=== PATIENT | female | born 1990 | race Caucasian/White ===

== ENCOUNTER 2016-11-20 16:31 | Emergency (ER) | payer OTHER ==
[~2016-11-20] VITALS: Ht 162.6 cm; Wt 63.9 kg
[~2016-11-20 16:31] MED LIST: ABILIFY2 MG; ABILIFY5 MG PO; ALLERGY MEDICIN25 M3 PO; ATARAX,VISTARIL25 MG PO; ATARAX,VISTARIL50 MG PO; CITRATE OF MAG296 ML PO; COLACE100 MG PO; DEPAKOTE250 MG PO; DEPAKOTE500 MG PO; DESYREL12.5 MG PO; DILAUDID2 MG PO; FLAGYL500 MG PO; FLEXERIL10 MG PO; KEFLEX500 MG PO; LEXAPRO10 MG PO; LEXAPRO5 MG PO; METHADONE10 MG PO; NAPROSYN500 MG PO; NORCO 5/3251 TABLET PO; PERCOCET 10/1 TABLET PO; PERCOCET 5/31 TABLET PO; TORADOL10 MG PO; TRAMADOL HCL50 MG PO; ULTRAM50 MG PO; WELLBUTRIN XL150 MG; WELLBUTRIN XL300 MG; ZOFRAN4 MG PO
[2016-11-20] MEDS ORDERED: VENTOLIN HFA18 GM IH (18:16)
[2016-11-20] MEDS ORDERED: METHADONE10 MG PO (18:16)
[2016-11-20] MEDS ORDERED: VOLTAREN50 MG PO (18:16)
[2016-11-20 19:33] VITALS: BP 124/76
== END 2016-11-20 19:33 | disposition home or self-care (01) ==
LOC: EME 16:31
DX: S16.1XXA Strain of muscle, fascia and tendon at neck level, initial encounter (principal); R51 Headache; V49.50XA Passenger injured in collision with unspecified motor vehicles in traffic accident, initial encounter; Z79.891 Long term (current) use of opiate analgesic; F17.200 Nicotine dependence, unspecified, uncomplicated
CPT/HCPCS: 72040; 99281; 99283

== ENCOUNTER 2016-12-13 15:46 | Emergency (ER) | payer OTHER ==
[~2016-12-13] VITALS: Ht 162.6 cm; Wt 64.1 kg
[~2016-12-13 15:46] MED LIST changes: +VENTOLIN HFA18 GM IH; +VOLTAREN50 MG PO
[2016-12-13] MEDS ORDERED: ZOFRAN ODT4 MG PO (16:04)
[2016-12-13] MEDS ORDERED: PERCOCET 5/31 TABLET PO (16:04)
[2016-12-13 16:13] VITALS: BP 115/82
== END 2016-12-13 16:07 | disposition home or self-care (01) ==
LOC: EME 15:46
DX: K02.9 Dental caries, unspecified (principal)
CPT/HCPCS: 99281; 99284

== ENCOUNTER 2017-02-08 18:43 | Emergency (ER) | payer OTHER ==
[~2017-02-08] VITALS: Ht 162.6 cm; Wt 61.4 kg
[~2017-02-08 18:43] MED LIST changes: +ZOFRAN ODT4 MG PO
[2017-02-08] MEDS ORDERED: PREDNISONE20 MG PO (20:32)
[2017-02-08] MEDS ORDERED: BENADRYL50 MG PO (20:32)
[2017-02-08] MEDS ORDERED: PEPCID40 MG PO (20:32)
[2017-02-08] MEDS ORDERED: LEVAQUIN750 MG PO (20:34)
[2017-02-08 21:49] VITALS: BP 116/72
== END 2017-02-08 21:51 | disposition home or self-care (01) ==
LOC: EME 18:43
DX: L50.9 Urticaria, unspecified (principal); F17.200 Nicotine dependence, unspecified, uncomplicated
CPT/HCPCS: 99281; 99284; J1200; J2405; J2930; J7030; S0028

== ENCOUNTER 2017-06-09 20:30 | Emergency (ER) | payer OTHER ==
[~2017-06-09] VITALS: Ht 167.6 cm; Wt 68.0 kg
[~2017-06-09 20:30] MED LIST changes: +BENADRYL50 MG PO; +LEVAQUIN750 MG PO; +PEPCID40 MG PO; +PREDNISONE20 MG PO
[2017-06-09] MEDS ORDERED: MOTRIN600 MG PO (21:54)
[2017-06-09] MEDS ORDERED: PERCOCET 5/31 TABLET PO (21:54)
[2017-06-09] MEDS ORDERED: CLEOCIN300 MG PO (21:54)
[2017-06-09 22:02] VITALS: BP 121/74
== END 2017-06-09 22:05 | disposition home or self-care (01) ==
LOC: EME 20:30
DX: K08.89 Other specified disorders of teeth and supporting structures (principal); F17.200 Nicotine dependence, unspecified, uncomplicated; Z88.2 Allergy status to sulfonamides; Z91.041 Radiographic dye allergy status; Z88.6 Allergy status to analgesic agent
CPT/HCPCS: 99281; 99283

== ENCOUNTER → 2017-06-28 | Outpatient (CLI) | payer OTHER ==
[~2017-06-28] MED LIST changes: +CLEOCIN300 MG PO; +MOTRIN600 MG PO
== END | disposition home or self-care (01) ==
LOC: EKG 13:00
DX: I07.1 Rheumatic tricuspid insufficiency (principal)
CPT/HCPCS: 93306

== ENCOUNTER 2017-08-25 15:30 | Emergency (ER) | payer OTHER ==
[~2017-08-25] VITALS: Ht 162.6 cm; Wt 59.7 kg
[2017-08-25 16:07] LABS: HEMATOCRIT 42.6 % (36.0-46.0); MCH 31.3 PG (29.0-34.0); MCHC 34.3 G/DL (30.0-36.0); MCV 91.4 FL (83-99); MEAN PLAT.VOLUME 9.8 uM^3 (9.5-12.4); PLATELET COUNT 314 K/uL (156-360); RBC DIS.WIDTH-CV 11.9 % (11.8-14.6); RED BLOOD COUNT 4.66 M/uL (3.80-5.20)
[2017-08-25 16:13] LABS: CHLORIDE 104 mEq/L (99-109); POTASSIUM 4.1 mEq/L (3.7-5.4); SODIUM 133 mEq/L (136-147)
[2017-08-25 16:15] LABS: GLUCOSE 124 mg/dL (70-99)
[2017-08-25 16:16] LABS: ANION GAP 9 MEQ/L (2-14)
[2017-08-25 16:17] LABS: TOTAL BILIRUBIN 0.5 mg/dL (0.0-1.0)
[2017-08-25 16:19] LABS: ALKALINE PHOSPHATASE 50 IU/L (3-129); GFR ESTIMATE (CALCULATED) > 59 mL/min/
[2017-08-25 16:20] LABS: UREA NITROGEN (BUN) 10 mg/dL (9-23)
[2017-08-25 16:22] LABS: LIPASE 28 U/L (1.0-51.0)
[2017-08-25 16:29] LABS: QUANTITATIVE HCG < 4.0 MIU/ML
[2017-08-25 16:36] LABS: ADD MIUA? YES; BILIRUBIN NEGATIVE; BLOOD NEGATIVE; COLOR AMBER ((YELLOW)); GLUCOSE (STRIP) NEGATIVE; KETONES 5; LEUKOCYTES TRACE; NITRITE NEGATIVE; PROTEIN (STRIP) 30; SPECIFIC GRAVITY 1.027 (1.000-1.030)
[2017-08-25 16:55] LABS: BACTERIA RARE /HPF; EPITHELIAL CELLS 1+ /HPF; MUCUS 1+ /LPF; RED BLOOD CELLS 0-5 /HPF (0-5); UCUL ADDED? NO; WHITE BLOOD CELLS 0-5 /HPF (0-5)
[2017-08-25] MEDS ORDERED: PERCOCET 5/31 TABLET PO (20:10)
[2017-08-25] MEDS ORDERED: ZOFRAN ODT4 MG PO (20:10)
[2017-08-25 20:28] VITALS: BP 115/70
== END 2017-08-25 20:48 | disposition home or self-care (01) ==
LOC: EME 15:30
DX: R10.2 Pelvic and perineal pain (principal); R10.31 Right lower quadrant pain; R11.0 Nausea; R00.0 Tachycardia, unspecified; N85.8 Other specified noninflammatory disorders of uterus; Z85.41 Personal history of malignant neoplasm of cervix uteri; J45.909 Unspecified asthma, uncomplicated; F17.200 Nicotine dependence, unspecified, uncomplicated
CPT/HCPCS: 74176; 76856; 80053; 81003; 83690; 84702; 85027; 93005; 99281; 99284; J2270; J2405; J3010; J7030

== ENCOUNTER 2018-02-15 23:18 | Emergency (ER) | payer OTHER ==
[~2018-02-15] VITALS: Ht 162.6 cm; Wt 62.1 kg
[2018-02-16 00:29] LABS: HEMATOCRIT 40.4 % (36.0-46.0); MCH 31.5 PG (29.0-34.0); MCHC 34.7 G/DL (30.0-36.0); MCV 90.8 FL (83-99); PLATELET COUNT 278 K/uL (156-360); RBC DIS.WIDTH-CV 12.2 % (11.8-14.6); RBC DIS.WIDTH-SD 41.2 % (39-53); RED BLOOD COUNT 4.45 M/uL (3.80-5.20); WHITE BLOOD COUNT 12.9 K/uL (4.1-10.2)
[2018-02-16 00:41] LABS: ALBUMIN 4.6 g/dL (3.2-4.8); CHLORIDE 103 mEq/L (99-109); POTASSIUM 3.9 mEq/L (3.7-5.4); SODIUM 137 mEq/L (136-147)
[2018-02-16 00:43] LABS: GLUCOSE 105 mg/dL (70-99); TOTAL PROTEIN 7.4 g/dL (6.4-8.3)
[2018-02-16 00:45] LABS: TOTAL BILIRUBIN 0.4 mg/dL (0.0-1.0)
[2018-02-16 00:47] LABS: ALKALINE PHOSPHATASE 52 IU/L (3-129); CREATININE 0.8 mg/dL (0.6-1.3); GFR ESTIMATE (CALCULATED) > 59 mL/min/
[2018-02-16 00:48] LABS: UREA NITROGEN (BUN) 9 mg/dL (9-23)
[2018-02-16 00:49] LABS: AST (GOT) 16 IU/L (2-34)
[2018-02-16 00:50] LABS: ALT (GPT) 9 IU/L (3-49)
[2018-02-16 00:57] LABS: QUANTITATIVE HCG < 4.0 MIU/ML
[2018-02-16 01:26] LABS: APPEARANCE CLEAR ((CLEAR)); BILIRUBIN NEGATIVE; BLOOD SMALL; COLOR YELLOW ((YELLOW)); GLUCOSE (STRIP) NEGATIVE; KETONES NEGATIVE; LEUKOCYTES NEGATIVE; NITRITE NEGATIVE; PROTEIN (STRIP) NEGATIVE; SPECIFIC GRAVITY 1.009 (1.000-1.030); UROBILINOGEN 0.2 MG/DL (0.2-1.0)
[2018-02-16 01:46] LABS: BACTERIA RARE /HPF; EPITHELIAL CELLS RARE /HPF; MUCUS NONE SEEN /LPF; RED BLOOD CELLS 0-5 /HPF (0-5); UCUL ADDED? NO; WHITE BLOOD CELLS 0-5 /HPF (0-5)
[2018-02-16 02:22] LABS: LIPASE 25 U/L (1.0-51.0)
[2018-02-16 05:37] VITALS: BP 120/84
== END 2018-02-16 05:39 | disposition home or self-care (01) ==
LOC: EME 23:18
DX: K59.00 Constipation, unspecified (principal); N83.12 Corpus luteum cyst of left ovary; J45.909 Unspecified asthma, uncomplicated; F32.9 Major depressive disorder, single episode, unspecified; F41.9 Anxiety disorder, unspecified; Z85.41 Personal history of malignant neoplasm of cervix uteri; F17.200 Nicotine dependence, unspecified, uncomplicated; Z88.2 Allergy status to sulfonamides; Z88.5 Allergy status to narcotic agent; Z88.6 Allergy status to analgesic agent; Z88.0 Allergy status to penicillin; Z88.8 Allergy status to other drugs, medicaments and biological substances; Z91.041 Radiographic dye allergy status
CPT/HCPCS: 74177; 80053; 81003; 83690; 84702; 85027; 99281; 99285; J1200; J1885; J2930; J7030